=== PATIENT | female | born 1975 | race Caucasian/White ===

== ENCOUNTER 2020-07-01 10:53 | Outpatient (CLI) | payer BC, SELFPAY ==
--- NOTE | ~2020-07-01 | MM_ITS ---
EXAMINATION: MM screening kishan BI w nanci HISTORY: Screening mammogram TECHNIQUE: Craniocaudal and mediolateral oblique 3-D tomosynthesis images were obtained and synthetic 2-D images were generated. CAD analysis was submitted and interpreted. COMPARISON: 04/14/2019, 08/06/2017, 07/13/2016, 11/02/2010 bilateral digital screening mammogram examina tions BREAST PARENCHYMAL COMPOSITION: There are scattered areas of fibroglandular density. FINDINGS: There is no evidence of suspicious mass, calcification, or architectural distortion to sugg est malignancy in either breast. There has been no suspicious interval change. IMPRESSION: 1. No mammographic evidence of malignancy. 2. Recommend routine screening mammography in one year. BI-RADS Category 1: Negative Reviewed, dictated and finalized at location A. TERIA MONITOR
== END 2020-07-01 10:54 | disposition home or self-care (01) ==
PROVIDERS: PCP Internal Medicine; Visit Provider Student in an Organized Health Care Education/Training Program
DX: Z12.31 Encounter for screening mammogram for malignant neoplasm of breast (principal)
CPT/HCPCS: 77063; 77067

== ENCOUNTER 2022-02-02 00:53 | Day surgery (SDC) | payer BC, SELFPAY ==
[2022-01-20 10:08] VITALS: BMI 31.0
--- NOTE | 2022-01-31 09:18 | PM.HPGS ---
History of Present Illness History of Present Illness Consent: Risks, benefits, and alternatives have been discussed and questions answered. Patient agrees to proceed with procedure. Chief complaint: ulcerative colitis, GERD Narrative: Enedelia Riddle is a 46 year old female with chronic ulcerative colitis here for surveillance colonoscopy. Her last colonoscopy, 3 years ago, did not show any dysplasia on biopsies. [facility] Past Medical History Medical History Abnormal finding of blood chemistry Abnormal thyroid blood test Acid reflux BMI 29.0-29.9,adult BMI 33.0-33.9,adult Encounter for repeat Pap smear due to previous insuff cervical cells Encounter for routine adult health examination without abnormal findings Encounter for screening for malignant neoplasm of cervix Family history of premature CAD IBS (irritable bowel syndrome) Migraines Mixed hyperlipidemia Ulcerative colitis Vaginal delivery x1 Surgical History Surgical History History of appendectomy 2014 History of tonsillectomy 1994 Family History Family History Father Hypertension Family history of elevated blood lipids Family history of type 2 diabetes mellitus Mother Hypertension Family history of coronary artery disease Family history of type 2 diabetes mellitus Colon polyp Carcinoma of colon Acute myocardial infarction [place] 2019 Family history of pancreatic cancer Other Diabetes mellitus Social History Social History Smoking status: Never smoker Second hand tobacco smoke exposure: No Alcohol intake: current Drinks per week: 5 Substance use: unknown Substance use type: does not use Living arrangements: with family Spiritual care concerns: No Meds Home Medications and Allergies Home Medications Medication Instructions Recorded Confirmed Type famotidine 40 mg tablet 40 mg PO DAILY 12/10/19 02/02/22 History triamcinolone acetonide 55 mcg 2 spray intranasal DAILY 12/10/19 02/02/22 History nasal spray aerosol (Nasacort) hyoscyamine sulfate 0.125 mg See Rx Instructions PO .COMPLEX 03/12/20 02/02/22 Rx sublingual tablet PRN IBS #90 tabs ondansetron 8 mg disintegrating 8 mg PO Q8H PRN nausea and 03/12/20 02/02/22 Rx tablet vomiting #30 tabs prochlorperazine maleate 10 mg 10 mg PO QID PRN migraine headache 03/12/20 02/02/22 Rx tablet #30 tabs multivitamin 1 tablet PO DAILY 06/15/20 02/02/22 History folic acid 1 mg tablet 1 mg PO DAILY #90 tabs 01/04/21 02/02/22 Rx fexofenadine 180 mg tablet 180 mg PO DAILY 01/05/21 02/02/22 History (Maria T Allergy) montelukast 10 mg tablet See Rx Instructions .Route 03/15/21 02/02/22 Rx .COMPLEX #90 tabs betamethasone, augmented 0.05 % 1 applic topical DAILY PRN Rash 07/12/21 02/02/22 History topical ointment ketotifen fumarate 0.025 % (0.035 1 drp LEFT EYE BID PRN Dry Eye(S) 07/12/21 02/02/22 History %) eye drops (Allergy Eye (ketotifen)) rizatriptan 10 mg tablet See Rx Instructions PO .COMPLEX 07/12/21 02/02/22 Rx PRN migraine headache #12 tabs rosuvastatin 40 mg tablet 40 mg PO DAILY #90 tabs 07/19/21 02/02/22 Rx calcium carbonate 600 mg calcium 1,200 mg PO DAILY 01/24/22 02/02/22 History (1,500 mg) tablet (Calcium) mesalamine 1.2 gram tablet,delayed 2.4 g PO DAILY #180 tabs 01/24/22 02/02/22 Rx release omega-3 fatty acids 1,000 mg 1,000 mg PO BID 01/24/22 02/02/22 History capsule (Fish Oil Concentrate) Allergies Allergy/AdvReac Type Severity Reaction Status Date / Time adhesive Allergy Unknown Other Verified 02/02/22 06:55 Assessment and Plan Assessment and plan (1) Ulcerative colitis: Code(s): K51.90 - Ulcerative colitis, unspecified, without complications Status: Acute Assessment and
--- NOTE | 2022-02-01 10:05 | WPDANESEPPF ---
Anes - Initial Pre Proc Eval Procedure: Operation Date: 02/02/22 08:00 Proposed Procedures p Esophagogastroduodenoscopy & Colonoscopy - Luis Fernando Dillon MD Date/Time: 02/01/22 10:05 Surgeon: Luis Fernando Dillon MD Pre Op Diagnosis: ulcerative colitis, GERD Patient Data Age: 46 Gender: F Height: 1.63 m Weight: 82 kg Allergies Allergy/AdvReac Type Severity Reaction Status Date / Time adhesive Allergy Unknown Other Verified 02/02/22 06:55 Home Medications Medication Instructions Recorded Confirmed Type famotidine 40 mg tablet 40 mg PO DAILY 12/10/19 02/02/22 History triamcinolone acetonide 55 mcg 2 spray intranasal DAILY 12/10/19 02/02/22 History nasal spray aerosol (Nasacort) hyoscyamine sulfate 0.125 mg See Rx Instructions PO .COMPLEX 03/12/20 02/02/22 Rx sublingual tablet PRN IBS #90 tabs ondansetron 8 mg disintegrating 8 mg PO Q8H PRN nausea and 03/12/20 02/02/22 Rx tablet vomiting #30 tabs prochlorperazine maleate 10 mg 10 mg PO QID PRN migraine headache 03/12/20 02/02/22 Rx tablet #30 tabs multivitamin 1 tablet PO DAILY 06/15/20 02/02/22 History folic acid 1 mg tablet 1 mg PO DAILY #90 tabs 01/04/21 02/02/22 Rx fexofenadine 180 mg tablet 180 mg PO DAILY 01/05/21 02/02/22 History (Maria T Allergy) montelukast 10 mg tablet See Rx Instructions .Route 03/15/21 02/02/22 Rx .COMPLEX #90 tabs betamethasone, augmented 0.05 % 1 applic topical DAILY PRN Rash 07/12/21 02/02/22 History topical ointment ketotifen fumarate 0.025 % (0.035 1 drp LEFT EYE BID PRN Dry Eye(S) 07/12/21 02/02/22 History %) eye drops (Allergy Eye (ketotifen)) rizatriptan 10 mg tablet See Rx Instructions PO .COMPLEX 07/12/21 02/02/22 Rx PRN migraine headache #12 tabs rosuvastatin 40 mg tablet 40 mg PO DAILY #90 tabs 07/19/21 02/02/22 Rx calcium carbonate 600 mg calcium 1,200 mg PO DAILY 01/24/22 02/02/22 History (1,500 mg) tablet (Calcium) mesalamine 1.2 gram tablet,delayed 2.4 g PO DAILY #180 tabs 01/24/22 02/02/22 Rx release omega-3 fatty acids 1,000 mg 1,000 mg PO BID 01/24/22 02/02/22 History capsule (Fish Oil Concentrate) Patient hx anesthesia problems: none Family hx anesthesia problems: none Results Review: All pre-operative results and documents have been reviewed as part of the pre-operative evaluation. [facility] Past Medical History Medical History Abnormal finding of blood chemistry Abnormal thyroid blood test Acid reflux BMI 29.0-29.9,adult BMI 33.0-33.9,adult Encounter for repeat Pap smear due to previous insuff cervical cells Encounter for routine adult health examination without abnormal findings Encounter for screening for malignant neoplasm of cervix Family history of premature CAD IBS (irritable bowel syndrome) Migraines Mixed hyperlipidemia Ulcerative colitis Vaginal delivery x1 Surgical History Surgical History History of appendectomy 2014 History of tonsillectomy 1994 Family History Family History Father Hypertension Family history of elevated blood lipids Family history of type 2 diabetes mellitus Mother Hypertension Family history of coronary artery disease Family history of type 2 diabetes mellitus Colon polyp Carcinoma of colon Acute myocardial infarction [place] 2019 Family history of pancreatic cancer Other Diabetes mellitus Social History Social History Smoking status: Never smoker Second hand tobacco smoke exposure: No Alcohol intake: current Drinks per week: 5 Substance use: unknown Substance use type: does not use Living arrangements: with family Spiritual care concerns: No Anes - Eval Final PreProcedure Day of Procedure 02/01/22 10:05 Patient weight: obese Heart: regular rate and rhythm
[2022-02-02 06:47] VITALS: BP 142/79; PULSE 67; RESP 18; TEMP 36.3; O2SAT 100; BMI 32.5
[2022-02-02] MEDS: LACTATED RINGERS 1,000 ML 150 ML IV CONT (07:09)
--- NOTE | 2022-02-02 08:23 | SUR.OPER ---
EGD: Start 809, End 811, Colon: start 817, End 829
[2022-02-02 08:39] VITALS: BP 129/76; PULSE 64; RESP 20; O2SAT 100
[2022-02-02 08:49] VITALS: BP 133/80; PULSE 57; RESP 20; O2SAT 99
[2022-02-02 08:59] VITALS: BP 147/79; PULSE 54; RESP 18; O2SAT 100
== END 2022-02-02 09:09 | disposition home or self-care (01) ==
PROVIDERS: PCP Internal Medicine; Visit Provider Internal Medicine Gastroenterology
PROC: 0DJ08ZZ Inspection of Upper Intestinal Tract, Via Natural or Artificial Opening Endoscopic (ICD-10-PCS; CPT 43235; principal; 2022-02-02 08:00)
DX: Z09 Encounter for follow-up examination after completed treatment for conditions other than malignant neoplasm (principal); K57.30 Diverticulosis of large intestine without perforation or abscess without bleeding; K51.00 Ulcerative (chronic) pancolitis without complications; K21.9 Gastro-esophageal reflux disease without esophagitis; E78.2 Mixed hyperlipidemia; E66.9 Obesity, unspecified; Z68.32 Body mass index [BMI] 32.0-32.9, adult
CPT/HCPCS: 45380; 43239; 87081; 88305; J2704; J7120

== ENCOUNTER 2022-03-01 09:04 | Outpatient (CLI) | payer BC, SELFPAY ==
--- NOTE | ~2022-03-01 | MM_ITS ---
EXAMINATION: MM screening kishan BI w nanci HISTORY: Screening TECHNIQUE: Craniocaudal and mediolateral oblique 3-D tomosynthesis images were obtained and synthetic 2-D images were generated. CAD analysis was submitted and interpreted. COMPARISON: Comparison to multiple prior studies sequentially, with oldest reviewed study dated 08/06. BREAST PARENCHYMAL COMPOSITION: There are scattered areas of fibroglandular density. FINDINGS: There is no evidence of suspicious mass, calcification, or architectural distortion to sugg est malignancy in either breast. There has been no suspicious interval change. IMPRESSION: 1. No mammographic evidence of malignancy. 2. Recommend routine screening mammography in one year. BI-RADS Category 1: Negative Reviewed, dictated and finalized at location A.
== END 2022-03-01 09:05 | disposition home or self-care (01) ==
PROVIDERS: PCP Internal Medicine; Visit Provider Student in an Organized Health Care Education/Training Program
DX: Z12.31 Encounter for screening mammogram for malignant neoplasm of breast (principal)
CPT/HCPCS: 77063; 77067

== ENCOUNTER 2022-03-17 14:14 | Outpatient (NON) | payer BC, SELFPAY | END 2022-03-17 14:15 | disposition home or self-care (01) | LOC: ANHLAB 14:16 | PROVIDERS: PCP Internal Medicine; Visit Provider Nurse Practitioner | DX: D22.5 Melanocytic nevi of trunk (principal) | CPT/HCPCS: 88305 ==

== ENCOUNTER 2023-06-19 09:05 | Outpatient (CLI) | payer BC, SELFPAY ==
--- NOTE | ~2023-06-19 | MM_ITS ---
EXAMINATION: MM screening kishan BI w nanci HISTORY: Screening TECHNIQUE: Craniocaudal and mediolateral oblique 3-D tomosynthesis images were obtained and synthetic 2-D images were generated. CAD analysis was submitted and interpreted. COMPARISON: Comparison to multiple prior studies sequentially, with oldest reviewed study dated 07/13. BREAST PARENCHYMAL COMPOSITION: There are scattered areas of fibroglandular density. FINDINGS: There is no evidence of suspicious mass, calcification, or architectural distortion to sugg est malignancy in either breast. There has been no suspicious interval change. IMPRESSION: 1. No mammographic evidence of malignancy. 2. Recommend routine screening mammography in one year. BI-RADS Category 1: Negative Reviewed, dictated and finalized at location A. 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
== END 2023-06-19 09:06 | disposition home or self-care (01) ==
PROVIDERS: PCP Internal Medicine; Visit Provider Obstetrics & Gynecology
DX: Z12.31 Encounter for screening mammogram for malignant neoplasm of breast (principal)
CPT/HCPCS: 77063; 77067

== ENCOUNTER 2024-08-20 00:29 | Day surgery (SDC) | payer BC, SELFPAY ==
--- NOTE | 2024-06-06 10:05 | SUR.PREOP ---
When nurse was doing pt's PAT call late yesterday patient mention she was on antibiotice for a flared up of her diverticulitis. I spoke with Dr. Jean to day and regarding the patient on the scheduled for 06/18 and her recent issues. He said to postpone her procedure for at least 8 weeks. I called pt this am and discussed with her what Dr. Jean had said. She agreed and was reschedule to 08/20 at 1000.
[2024-08-11 10:58] VITALS: BMI 31.0
--- OUTSIDE RECORDS SUMMARY | 2024-08-20 00:34 | XMS_ITS | Clinical Summary ---
Author Organization [facility] Address [address] [place] [address] Care Team Providers Care Pacu Nurse Name Role Phone Matheus Bearden MD Primary Care Provider [phone] Allergies Active Allergy Reactions Criticality Noted Date Comments Tape Rash Low 07/18/2023 Plastic tape, cardiac leads Medications folic acid (FOLVITE) 1 MG tablet Take 1 tablet (1 mg total) by mouth daily. 3 Active mesalamine EC (LIALDA) 1.2 g Tab EC tablet Take 2 tablets (2.4 g total) by mouth daily with breakfast. 3 Active rosuvastatin (CRESTOR) 40 MG tablet Take 1 tablet (40 mg total) by mouth daily. 3 Active Estradiol (IMVEXXY MAINTENANCE PACK) [address] 4 mcg vaginally 2 (two) times a week. Days of insertion may vary. Active montelukast (SINGULAIR) 10 MG tablet Take 1 tablet (10 mg total) by mouth daily as needed (allergies). Active rizatriptan (MAXALT) 10 MG tablet Take 1 tablet (10 mg total) by mouth as needed for Migraine. May repeat in 2 hours if needed Active famotidine (PEPCID) 40 MG tablet Take 1 tablet (40 mg total) by mouth daily. Active omega-3 fatty acid (FISH OIL) 500 MG capsule Take 1 capsule (500 mg total) by mouth daily. Active Multiple Vitamins-Mineral s (CENTRUM WOMEN OR) Take 1 tablet by mouth nightly. Active calcium citrate-vitamin D (CITRACAL PETITES/VIT D) 200-6.25 MG-MCG Tab Take 2 tablets by mouth nightly. Active fexofenadine (HARESH) 180 MG tablet Take 1 tablet (180 mg total) by mouth daily as needed for Allergies. Active triamcinolone acetonide (NASACORT) 55 MCG/ACT nasal inhaler 2 sprays by Each Nostril route daily as needed (allergies). Active prochlorperazine (COMPAZINE) 10 MG tablet Take 1 tablet (10 mg total) by mouth every 6 (six) hours as needed (migraines). Active LORazepam (ATIVAN) 0.5 MG tablet Take 1 tablet (0.5 mg total) by mouth 3 (three) times daily as needed. FOR ANXIETY 4 Active ondansetron (ZOFRAN) 4 MG tablet Take 1 tablet (4 mg total) by mouth every 8 (eight) hours as needed for Nausea. 20 tablet 4 Active Active Problems Problem Noted Date Diagnosed Date Coronary artery disease invo lving wainwright coronary artery of wainwright heart without angina pectoris 10/12/2023 Assessment & Plan (10/12/2023 1:31 PM CDT): She has evidence of CADSRAD score 1 disease in her coronary arteries. I do not think that it is responsible for her prior chest pain symptoms and her symptoms have resolved. Continue medical management with rosuvastatin. She has a family history of coronary artery disease. Chest pain 07/18/2023 Hypercholesteremia Assessment & Plan (10/12/2023 1:31 PM CDT): Continue rosuvastatin. Immunizations Name Administration Dates Next Due PFIZER COVID-19 (ORIGINAL FO RMULATION, PURPLE CAP) mRNA, LNP-S, PF, 30 MCG/0.3 ML DOSE 05/27/2020,05/06/2020 Family History Medical History Relation Comments Heart Father cardiac arrest Mother cardiac stent Mother Relation Status Comments Father Mother Social History Tobacco Use Types Packs/Day Years Used Date Smoking Tobacco: Never Passive Smoke Exposure: Never Smokeless Tobacco: Never Tobacco Cessation:Counseling Given: Not Answered Alcohol Use Standard Drinks/Week Comments Yes 0 (1 standard drink = 0.6 oz pur e alcohol) socially Comments No Sex and Gender Information Value Date Recorded Sex Assigned at Not on file Legal Sex Female 2:04 PM CDT Gender Identity Not on file Sexual Orientation Not on file Last Filed Vital Signs Vital Sign Reading Time Taken Comments Blood Pressure 165/90 09/18/2023 8:46 AM CDT Pulse 64 09/18/2023 8:46 AM CDT Temperature 36.5 C (97.7 F) 09/18/2023 6:59 AM CDT Respiratory Rate 16 09/18/2023 8:46 AM CDT Oxygen Saturation 98% 09/18/2023 8:46 AM CDT Inhaled Oxygen Concentration - - Weight 83.5 kg (184 lb 1.4 oz) 09/18/2023 6:59 A M CDT Height 162.6 cm (5' 4 ) 09/18/2023 6:59 AM CDT Body Mass Index 31.6 09/18/2023 6:59 AM CDT Plan of Treatment Upcoming Encounters Date Type Department Care Team (Late st Contact Info) Description 09/19/2024 9:00 AM CDT [facility] [address] [place] [id number] Kunal Leon MD [address] [address] Health Maintenance Due Date Last Done Comments ASCVD LDL 1975 Cervical Cancer Screening Pa p Smear (Age 30 to 64) Every 3 Years 1975 Colorectal Cancer Screening Colonoscopy (10 Years) 1975 Annual Physical 07/18/1978 Pneumococcal Vaccine: Pediatrics (0 to 5 Years) and At-Risk Patients (6 to 64 Years) (1 of 2 - PCV) 07/18/1981 Hepatitis C 07/18/1993 DTaP, Tdap and Td Vaccines ( 1 - Tdap) 07/18/1994 Hepatitis B Vaccines (1 of 3 - 19+ 3-dose series) 07/18/1994 Cervical Cancer Screening Pa p with HPV Testing (Age 30 to 64) Every 5 Years 07/18/2005 Cervical Cancer Screening [facility] HPV 07/18/2005 Mammogram Screening 2015 COVID-19 Vaccine (2023- 5 season) 2024 05/27/2020, 05/06/2020 PHQ-2 (Physician [place] 05/21/2024 Meningococcal B Vaccine Aged Out No l onger eligible based on patient's age to complete this topic Meningococcal Vaccine Aged Out No abdullahi luisana eligible based on patient's age to complete this topic RSV Immunizations Under 20 Months Aged Out No longer eligible b ased on patient's age to complete this topic Insurance [facility] Advance Directives * Full Code (Latest Code Status on File) Date Activated Date Inactivated Comments 07/18/2023 6:20 AM 07/18/2023 5:53 PM Care Teams Pacu Nurse Relationship Specialty Start Date End Date Matheus Bearden MD [address] [place] [id number] PCP - General INTERNAL MEDICINE 07/18/23
[2024-08-20 08:57] VITALS: BP 127/87; PULSE 70; RESP 18; TEMP 36.1; O2SAT 99
[2024-08-20] MEDS: LACTATED RINGERS 1,000 ML 150 ML IV CONT (09:05)
--- NOTE | 2024-08-20 09:25 | P.PNAN_ITS ---
Anes - Initial Pre Proc Eval Procedure: Operation Date: 08/20/24 10:00 Proposed Procedures p Colonoscopy - Odell Jean MD Date/Time: 08/20/24 09:25 Surgeon: Odell Jean MD Pre Op Diagnosis: ulcerative colitis Patient Data Age: 49 Gender: F Height: 1.63 m Weight: 85 kg Last Vital Signs Temp 36.1 C L 08/20/24 08:57 Pulse 70 08/20/24 08:57 Resp 18 08/20/24 08:57 BP 127/87 08/20/24 08:57 Pulse Ox 99 08/20/24 08:57 O2 Del Method Room Air 08/20/24 08:57 Allergies Allergy/AdvReac Type Severity Reaction Status Date / Time adhesive Allergy Unknown Other Verified 08/20/24 08:54 Home Medications ?Medication ?Instructions ?Recorded ?Confirmed ?Type famotidine 40 mg tablet 40 mg PO DAILY 12/10/19 08/20/24 History multivitamin 1 tablet PO DAILY 06/15/20 08/20/24 History betamethasone, augmented 0.05 % 1 applic topical DAILY PRN Rash 07/12/21 08/20/24 History topical ointment ketotifen fumarate 0.025 % (0.035 1 drp LEFT EYE BID PRN Dry Eye(S) 07/12/21 08/20/24 History %) eye drops (Allergy Eye (ketotifen)) calcium carbonate (Calcium 600) 1,200 mg PO DAILY 01/24/22 08/20/24 History omega-3 fatty acids 1,000 mg 1,000 mg PO BID 01/24/22 08/20/24 History capsule (Fish Oil Concentrate) fexofenadine 180 mg tablet 180 mg PO DAILY PRN allergies 07/18/22 08/20/24 History (Maria T Allergy) triamcinolone acetonide 55 mcg 2 spray intranasal DAILY PRN 07/18/22 08/20/24 History nasal spray aerosol (Nasacort) allergic symptoms ondansetron 8 mg disintegrating 8 mg PO Q8H PRN nausea and 02/13/23 08/20/24 Rx tablet vomiting #30 tabs lorazepam 0.5 mg tablet 0.5 mg PO TID PRN anxiety #50 tabs 07/25/23 08/20/24 Rx montelukast 10 mg tablet See Rx Instructions .Route 11/23/23 08/20/24 Rx .COMPLEX PRN allergies #90 tabs folic acid 1 mg tablet 1 mg PO DAILY #90 tabs 02/28/24 08/20/24 Rx mesalamine 1.2 gram tablet,delayed 2.4 g (2 x 1.2 gram) PO DAILY #180 02/28/24 08/20/24 Rx release tabs rosuvastatin 40 mg tablet See Rx Instructions .Route 03/19/24 08/20/24 Rx .COMPLEX #90 tabs ospemifene 60 mg tablet (Osphena) 60 mg PO DAILY #30 tabs 07/09/24 08/20/24 Rx rizatriptan 10 mg tablet See Rx Instructions PO .COMPLEX 08/01/24 08/20/24 Rx PRN migraine headache #12 tabs fezolinetant 45 mg tablet (Veozah) 45 mg PO DAILY #30 tabs 08/14/24 08/20/24 Rx hyoscyamine sulfate 0.125 mg See Rx Instructions PO .COMPLEX 08/19/24 08/20/24 Rx sublingual tablet PRN IBS #30 tabs prochlorperazine maleate 10 mg 10 mg PO QID PRN migraine headache 08/19/24 08/20/24 Rx tablet #30 tabs Patient hx anesthesia problems: none Family hx anesthesia problems: none Results Review: All pre-operative results and documents have been reviewed as part of the pre- operative evaluation. [facility] Past Medical History Medical History Abnormal finding of blood chemistry Abnormal thyroid blood test Acid reflux Anxiety BMI 29.0-29.9,adult BMI 33.0-33.9,adult Chest pain Encounter for preventive health examination Encounter for repeat Pap smear due to previous insuff cervical cells Encounter for routine adult health examination with abnormal findings Encounter for routine adult health examination without abnormal findings Encounter for screening for malignant neoplasm of cervix Family history of premature CAD Hospital discharge follow-up IBS (irritable bowel syndrome) Migraines Mixed hyperlipidemia Pre-diabetes Ulcerative colitis URI (upper respiratory infection) Vaginal delivery x1 Surgical History Surgical History History of appendectomy 2014 History of tonsillectomy 1994 Family History Family History Father Hypertension Family history of elevated blood lipids Family history of type 2 diabetes mellitus Mother Hypertension Family history of coronary artery disease Family history of type 2 diabetes mellitus Colon polyp Carcinoma of colon Acute myocardial infarction [place] 2019 Family history of pancreatic cancer Other Diabetes mellitus Social History Social History Smoking status: Never smoker Second hand tobacco smoke exposure: No Alcohol intake: current Drinks per week: 4 Substance use: unknown Substance use type: does not use Lack of Transportation: No Lack of Food: Never True Current Housing: I Have Housing Concerned About Future Housing: No Difficulty Paying Gas/Electric Bills: No Difficulty Paying for Meds: No Currently Unemployed: No Education: Master's Degree or Higher Difficulty w/ Childcare or Family Care: No Living arrangements: with family Occupation/Education: occupation Gender identity (if verbalized by the patient): Female Spiritual care concerns: No Anes - Eval Final PreProcedure Day of Procedure 08/20/24 09:25 Patient weight: obese Heart: regular rate and rhythm Lungs: clear to auscultation Airway: Mallampati scale class II Neurological: alert and oriented Last oral intake: >/= 8 hours ASA classification: III Emergent: no Anesthetic plan: proceed Anesthesia type and monitoring: general GIVS and standard monitoring Results Review: All pre-operative results and documents have been reviewed as part of the pre- operative evaluation. Informed Consent: The patient's anesthetic plan and its attendant risks and benefits were discussed with the patient/family/POA. Questions were solicited and answers provided to the satisfaction of the patient/family/POA.
--- NOTE | 2024-08-20 09:45 | PM.IMHP ---
H&P: HPI History of Present Illness Date/Time: 08/20/24 09:45 Chief Complaint: Screening colonoscopy Narrative: This is the patient's first colonoscopy. There are no GI symptoms and there is no family history of colorectal cancer. Review of Systems Review of Systems: All systems reviewed & are unremarkable except as noted in HPI and below PMFSH Past Medical History Medical History Abnormal finding of blood chemistry Abnormal thyroid blood test Acid reflux Anxiety BMI 29.0-29.9,adult BMI 33.0-33.9,adult Chest pain Encounter for preventive health examination Encounter for repeat Pap smear due to previous insuff cervical cells Encounter for routine adult health examination with abnormal findings Encounter for routine adult health examination without abnormal findings Encounter for screening for malignant neoplasm of cervix Family history of premature CAD Hospital discharge follow-up IBS (irritable bowel syndrome) Migraines Mixed hyperlipidemia Pre-diabetes Ulcerative colitis URI (upper respiratory infection) Vaginal delivery x1 Surgical History Surgical History History of appendectomy 2014 History of tonsillectomy 1994 Family History Family History Father Hypertension Family history of elevated blood lipids Family history of type 2 diabetes mellitus Mother Hypertension Family history of coronary artery disease Family history of type 2 diabetes mellitus Colon polyp Carcinoma of colon Acute myocardial infarction [place] 2019 Family history of pancreatic cancer Other Diabetes mellitus Social History Social History Smoking status: Never smoker Second hand tobacco smoke exposure: No Alcohol intake: current Drinks per week: 4 Substance use: unknown Substance use type: does not use Lack of Transportation: No Lack of Food: Never True Current Housing: I Have Housing Concerned About Future Housing: No Difficulty Paying Gas/Electric Bills: No Difficulty Paying for Meds: No Currently Unemployed: No Education: Master's Degree or Higher Difficulty w/ Childcare or Family Care: No Living arrangements: with family Occupation/Education: occupation Gender identity (if verbalized by the patient): Female Spiritual care concerns: No Meds Home Medications and Allergies Home Medications ?Medication ?Instructions ?Recorded ?Confirmed ?Type famotidine 40 mg tablet 40 mg PO DAILY 12/10/19 08/20/24 History multivitamin 1 tablet PO DAILY 06/15/20 08/20/24 History betamethasone, augmented 0.05 % 1 applic topical DAILY PRN Rash 07/12/21 08/20/24 History topical ointment ketotifen fumarate 0.025 % (0.035 1 drp LEFT EYE BID PRN Dry Eye(S) 07/12/21 08/20/24 History %) eye drops (Allergy Eye (ketotifen)) calcium carbonate (Calcium 600) 1,200 mg PO DAILY 01/24/22 08/20/24 History omega-3 fatty acids 1,000 mg 1,000 mg PO BID 01/24/22 08/20/24 History capsule (Fish Oil Concentrate) fexofenadine 180 mg tablet 180 mg PO DAILY PRN allergies 07/18/22 08/20/24 History (Maria T Allergy) triamcinolone acetonide 55 mcg 2 spray intranasal DAILY PRN 07/18/22 08/20/24 History nasal spray aerosol (Nasacort) allergic symptoms ondansetron 8 mg disintegrating 8 mg PO Q8H PRN nausea and 02/13/23 08/20/24 Rx tablet vomiting #30 tabs lorazepam 0.5 mg tablet 0.5 mg PO TID PRN anxiety #50 tabs 07/25/23 08/20/24 Rx montelukast 10 mg tablet See Rx Instructions .Route 11/23/23 08/20/24 Rx .COMPLEX PRN allergies #90 tabs folic acid 1 mg tablet 1 mg PO DAILY #90 tabs 02/28/24 08/20/24 Rx mesalamine 1.2 gram tablet,delayed 2.4 g (2 x 1.2 gram) PO DAILY #180 02/28/24 08/20/24 Rx release tabs rosuvastatin 40 mg tablet See Rx Instructions .Route 03/19/24 08/20/24 Rx .COMPLEX #90 tabs ospemifene 60 mg tablet (Osphena) 60 mg PO DAILY #30 tabs 07/09/24 08/20/24 Rx rizatriptan 10 mg tablet See Rx Instructions PO .COMPLEX 08/01/24 08/20/24 Rx PRN migraine headache #12 tabs fezolinetant 45 mg tablet (Veozah) 45 mg PO DAILY #30 tabs 08/14/24 08/20/24 Rx hyoscyamine sulfate 0.125 mg See Rx Instructions PO .COMPLEX 08/19/24 08/20/24 Rx sublingual tablet PRN IBS #30 tabs prochlorperazine maleate 10 mg 10 mg PO QID PRN migraine headache 08/19/24 08/20/24 Rx tablet #30 tabs Allergies Allergy/AdvReac Type Severity Reaction Status Date / Time adhesive Allergy Unknown Other Verified 08/20/24 08:54 Vital Signs Vital Signs - 24 hr 08/20/24 08:57 Temperature 97 F L Pulse Rate 70 Respiratory Rate 18 Blood Pressure 127/87 Pulse Oximetry 99 Oxygen Delivery Room Air Exam Const: General: cooperative and healthy appearing Resp: Effort & Inspection: normal respiratory effort and able to speak in complete sentences Auscultation: clear to auscultation bilaterally Cardio: Rate: regular rate Rhythm: regular rhythm GI: Inspection: normal to inspection GI Palp: No No hepatosplenomegaly present Auscultation: normal bowel sounds Rectal Exam: deferred Skin: General skin exam: normal color Psych: Appearance: grossly normal Mental Status: mental status grossly normal Assessment and Plan Assessment and plan (1) Colon cancer screening: Code(s): Z12.11 - Encounter for screening for malignant neoplasm of colon Status: Acute Assessment and Plan: The patient is deemed a good candidate for the procedure. Consent signed. Will proceed.
[2024-08-20 10:11] VITALS: BP 145/77; PULSE 65; RESP 13; O2SAT 99
[2024-08-20 10:21] VITALS: BP 143/61; PULSE 61; RESP 17; O2SAT 99
[2024-08-20 10:31] VITALS: BP 134/80; PULSE 56; RESP 14; O2SAT 99
== END 2024-08-20 10:43 | disposition home or self-care (01) ==
PROVIDERS: PCP Internal Medicine; Referring Provider Internal Medicine Gastroenterology; Visit Provider Internal Medicine Gastroenterology
PROC: 0DJD8ZZ Inspection of Lower Intestinal Tract, Via Natural or Artificial Opening Endoscopic (ICD-10-PCS; CPT 45378; principal; 2024-08-20 10:00)
DX: Z12.11 Encounter for screening for malignant neoplasm of colon (principal); K57.30 Diverticulosis of large intestine without perforation or abscess without bleeding; K21.9 Gastro-esophageal reflux disease without esophagitis; F41.9 Anxiety disorder, unspecified; K58.9 Irritable bowel syndrome, unspecified; E78.2 Mixed hyperlipidemia; R73.03 Prediabetes; E66.9 Obesity, unspecified; Z68.32 Body mass index [BMI] 32.0-32.9, adult; Z98.890 Other specified postprocedural states; Z87.19 Personal history of other diseases of the digestive system; Z80.0 Family history of malignant neoplasm of digestive organs; Z83.719 Family history of colon polyps, unspecified; Z82.49 Family history of ischemic heart disease and other diseases of the circulatory system
CPT/HCPCS: 45378; J2003; J2704; J7120

== ENCOUNTER 2024-09-19 08:19 | Outpatient (CLI) | payer BC, SELFPAY ==
--- NOTE | ~2024-09-19 | MM_ITS ---
EXAMINATION: MM screening kishan BI w nanci HISTORY: Screening TECHNIQUE: Craniocaudal and mediolateral oblique 3-D tomosynthesis images were obtained and synthetic 2-D images were generated. CAD analysis was submitted and interpreted. COMPARISON: Comparison to multiple prior studies sequentially, with oldest reviewed study dated 07/13. BREAST PARENCHYMAL COMPOSITION: Not Dense: The breasts are almost entirely fatty. FINDINGS: There is no evidence of suspicious mass, calcification, or architectural distortion to sugg est malignancy in either breast. There has been no suspicious interval change. IMPRESSION: 1. No mammographic evidence of malignancy. 2. Recommend routine screening mammography in one year. BI-RADS Category 1: Negative Reviewed, dictated and finalized at location A.
--- OUTSIDE RECORDS SUMMARY | 2024-09-20 11:01 | XMS_ITS | Clinical Summary ---
Author Organization [facility] Address [address] [place] [address] Care Team Providers Care Regulatory Affairs Internship Name Role Phone Matheus Bearden MD Primary Care Provider [phone] Allergies Active Allergy Reactions Criticality Noted Date Comments Tape Rash Low 07/18/2023 Plastic tape, cardiac leads Medications folic acid (FOLVITE) 1 MG tablet Take 1 tablet (1 mg total) by mouth daily. 05/20/20 23 Active mesalamine EC (LIALDA) 1.2 g Tab EC tablet Take 2 tablets (2.4 g total) by mouth daily with breakfast. 05/20/20 23 Active rosuvastatin (CRESTOR) 40 MG tablet Take 1 tablet (40 mg total) by mouth daily. 05/20/20 23 Active montelukast (SINGULAIR) 10 MG tablet Take 1 tablet (10 mg total) by mouth daily as needed (allergies). Active rizatriptan (MAXALT) 10 MG tablet Take 1 tablet (10 mg total) by mouth as needed for Migraine. May repeat in 2 hours if needed Active famotidine (PEPCID) 40 MG tablet Take 1 tablet (40 mg total) by mouth daily. Active Multiple Vitamins-Minerals (CENTRUM WOMEN OR) Take 1 tablet by mouth nightly. Active fexofenadine (HARESH) 180 [...] (three) times daily as needed. FOR ANXIETY 07/26/19 24 Active calcium carb-cholecalcife rol (CALCIUM 600+D) 600-20 MG-MCG tablet Active VEOZAH 45 MG Tab daily. Act demarcus hyoscyamine (LEVSIN/SL) 0.[address] 1 tablet (0.125 mg total) under the tongue. 08/20/19 25 Active methylcellulose (CITRUCEL) 500 MG tablet Take 2 tablets (1,000 mg total) by mouth daily. Active [place]-3 Fatty Acids (ULTRA OMEGA-3 FISH OIL) 1400 MG Cap Active ondansetron (ZOFRAN-ODT) 8 MG disintegrating tablet Active OSPHENA 60 MG Tab Ac tive Estradiol (IMVEXXY MAINTENANCE PACK) [address] 4 mcg vaginally 2 (two) times a week. Days of insertion may vary. 025 Discontinued omega-3 fatty acid (FISH OIL) 500 MG capsule Take 1 capsule (500 mg total) by mouth daily. 025 Discontinued calcium citrate-vitamin D (CITRACAL PETITES/VIT D) 200-6.25 MG-MCG Tab Take 2 tablets by mouth nightly. 025 Discontinued ondansetron (ZOFRAN) 4 MG tablet Take 1 tablet (4 mg total) by mouth every 8 (eight) hours as needed for Nausea. 20 tablet 09/18/19 24 025 Discontinued Active Problems Problem Noted Date Diagnosed Date Coronary artery disease [place] coronary artery of [place] heart without angina pectoris 10/12/2023 Assessment & [...] Plan (10/12/2023 1:31 PM CDT): Continue rosuvastatin. Encounters Date Type Department Care Team Description 09/19/2024 9:15 AM CDT Office Visit [facility] [address] [place] [phone] Kunal Leon MD Coronary Artery Disease (yearly); Lipids 09/19/2024 Travel from Last 3 Months Immunizations Immunization Administration Dates Next Due PFIZER COVID-19 (ORIGINAL FO RMULATION, PURPLE CAP) mRNA, LNP-S, PF, 30 MCG/0.3 ML DOSE 05/27/2020,05/06/2020 Family History Medical History Relation Comments Diabetes Father Heart Father Heart Disease Father Hyperlipidemia Father Hypertension Father Heart Disease Mother Hypertension Mother cardiac arrest Mother cardiac stent Mother Relation [...] Sign Reading Time Taken Comments Blood Pressure 118/82 09/19/2024 9:08 AM CDT Pulse 70 09/19/2024 9:08 AM CDT Temperature 36.5 C (97.7 F) 09/18/2023 6:59 AM CDT Respiratory Rate 16 09/18/2023 8:46 AM CDT Oxygen Saturation 96% 09/19/2024 9:08 AM CDT Inhaled Oxygen Concentration - - Weight 89 kg (196 lb 3.2 oz) 09/19/2024 9:08 AM CDT Height 162.6 cm (5' 4 ) 09/19/2024 9:08 AM CDT Body Mass Index 33.68 09/19/2024 9:08 AM CDT Plan of Treatment Upcoming Encounters Date Type Department Care Team (Late st Contact Info) Description 09/25/2025 10:30 AM CDT [facility] [address] [phone] Kunal Leon MD [facility]. [address] [place] [address] Health Maintenance Due Date Last Done Comments ASCVD LDL 1975 Cervical Cancer Screening Pa p Smear (Age 30 to 64) Every 3 Years 1975 Colorectal Cancer Screening Colonoscopy (10 Years) 1975 Annual Physical 07/18/1978 Hepatitis C 07/18/1993 DTaP, Tdap and Td Vaccines ( 1 - Tdap) 07/18/1994 Hepatitis B Vaccines (1 of 3 - 19+ 3-dose series) 07/18/1994 Pneumococcal Vaccine: Pediatrics (0 to 5 Years) and At-Risk Patients (6 to 49 Years) (1 of 2 - PCV) 07/18/1994 Cervical Cancer Screening Pa p with HPV Testing (Age 30 to 64) Every 5 Years 07/18/2005 Cervical Cancer Screening wi th HPV 07/18/2005 Mammogram Screening 2015 COVID-19 Vaccine (3 - 2023-2 5 season) 2024 05/27/2020, 05/06/2020 PHQ-2 (Physician [place]ie) 05/21/2024 Meningococcal B Vaccine Aged Out No l onger eligible based on patient's age to complete this topic Meningococcal Vaccine Aged Out No abdullahi luisana eligible based on patient's age to complete this topic RSV Immunizations Under 20 Months Aged Out No longer eligible b ased on patient's age to complete this topic Insurance [facility] Advance Directives * Full Code (Latest Code Status on File) Date Activated Date Inactivated Comments 07/18/2023 6:20 AM 07/18/2023 5:53 PM Care Teams Regulatory Affairs Internship Relationship Specialty Start Date End Date Matheus Bearden MD [address] [place] [phone] PCP - General INTERNAL MEDICINE 07/18/23
== END 2024-09-19 08:20 | disposition home or self-care (01) ==
LOC: ANHIMG 08:21
PROVIDERS: PCP Internal Medicine; Visit Provider Obstetrics & Gynecology
DX: Z12.31 Encounter for screening mammogram for malignant neoplasm of breast (principal)
CPT/HCPCS: 77063; 77067

== ENCOUNTER 2025-03-20 11:09 | Outpatient (CLI) | payer BC, SELFPAY ==
--- NOTE | ~2025-03-20 | XR_ITS ---
EXAMINATION: XR foot LT min 3V, 03/20/2025 11:25 CDT HISTORY: M79.672 - Pain in left foot COMPARISON: No comparisons available. Findings: No acute fracture or malalignment. No significant degenerative changes. Soft tissues unremarkable. Impression: No acute fracture or malalignment. Reviewed, dictated and finalized at location P. Impression: No acute fracture or malalignment.
== END 2025-03-20 11:10 | disposition home or self-care (01) ==
PROVIDERS: PCP Internal Medicine; Visit Provider Internal Medicine
DX: M79.672 Pain in left foot (principal)
CPT/HCPCS: 73630

== ENCOUNTER 2025-05-07 12:50 | Outpatient (CLI) | payer BC, SELFPAY ==
--- NOTE | ~2025-05-07 | US_ITS ---
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 Findings: Uterus: Uterus anteverted 5.7 x 2.7 x 3.6 cm, anterior uterine body fibroid 3 x 4 mm. . Endometrium 2 mm. Right Ovary:Right ovary 1.6 x 1.9 x 1 cm, no adnexal mass, normal flow. Left Ovary: Left ovary 1.7 x 1 x 1 cm, no adnexal mass, normal flow. Free Fluid: None Impression: Small probable uterine body fibroid. Reviewed, dictated and finalized at location P. 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
== END 2025-05-07 12:51 | disposition home or self-care (01) ==
LOC: GOSHIMG 12:50
PROVIDERS: PCP Obstetrics & Gynecology; Visit Provider Obstetrics & Gynecology
DX: N93.9 Abnormal uterine and vaginal bleeding, unspecified (principal)
CPT/HCPCS: 76830; 76856